=== PATIENT | female | born 1955 | race Caucasian/White ===

== ENCOUNTER 2020-09-03 14:31 | Outpatient (CLI) | payer MEDICARE, SELFPAY ==
[2020-09-03 15:35] LABS: Uric Acid 5.7 mg/dL (2.5-7.5)
== END 2020-09-03 14:32 | disposition home or self-care (01) ==
PROVIDERS: Visit Provider Internal Medicine
DX: M10.9 Gout, unspecified (principal)
CPT/HCPCS: 36415; 84550